=== PATIENT | female | born 1990 | race American Indian/Alaskan Native ===

== ENCOUNTER 2018-10-16 04:16 | Emergency (ER) | payer MEDICAID ==
[2018-10-16] MEDS ORDERED: TYLENOL ONE (04:49)
[2018-10-16] MEDS ORDERED: TYLENOL PO ONE (05:04)
--- NOTE | 2018-10-16 05:06 | Emergency Department Report ---
Chief Complaint: Abdominal Pain Stated Complaint: ABD PAIN - HPI History of Present Illness: [id number] IN FEB LMP 08/09 EDC 05/16 CO ABD CRAMPING NO DC NO BLEEDING MSE COMPLETED - Exam Vital Signs: Vital Signs 10/16/18 10/16/18 04:20 04:46 Temperature 98.0 F 98 F Pulse Rate 82 80 Respiratory 18 18 Rate Blood Pressure 105/52 105/52 O2 Sat by Pulse 99 100 Oximetry MSE screening note: Focused history and physical exam performed. Due to findings the following was ordered: ED Disposition for MSE Condition: Stable Instructions: Abdominal Pain (ED)
[2018-10-16 05:10] LABS: Basophils % (Auto) 0.6 % (0.0-1.8); Eosinophils # (Auto) 0.1 K/mm3 (0.0-0.4); Eosinophils % (Auto) 1.3 % (0.0-4.3); Hematocrit 36.7 % (30.3-42.9); Lymphocytes # (Auto) 1.4 K/mm3 (1.2-5.4); Lymphocytes % (Auto) 25.3 % (13.4-35.0); Mean Corpuscular HGB Conc 33 % (30-34); Mean Corpuscular Volume 91 fl (79-97); Monocytes # (Auto) 0.7 K/mm3 (0.0-0.8); Monocytes % (Auto) 11.8 % (0.0-7.3); Platelet Count 223 K/mm3 (140-440); Red Blood Count 4.02 M/mm3 (3.65-5.03); Red Cell Distribution Width 12.7 % (13.2-15.2)
[2018-10-16 05:18] LABS: Bilirubin,Urine NEG (Negative); Blood,Urine NEG (Negative); Color,Urine Yellow (Yellow); Mucus,Urine 1+ /HPF; Protein,Urine <15 mg/dL mg/dL (Negative); Urobilinogen,Urine < 2.0 mg/dL (<2.0)
[2018-10-16 05:38] LABS: BUN/Creatinine Ratio 18; Blood Urea Nitrogen 9 mg/dL (7-17); Calcium 9.2 mg/dL (8.4-10.2); Hemolysis Index 6
--- NOTE | 2018-10-16 06:46 | Ultrasound Report ---
PROCEDURE: US OB <= 14 WEEKS FETUS TECHNIQUE: Transabdominal imaging was obtained of the pelvis. HISTORY: abdominal pain COMPARISONS: None FINDINGS: The uterus is anteverted measuring 9.5 x 4.8 x 6.4 cm. Within the uterus is a well formed gestational sac which contains a yolk sac and pole. The crown-rump length is 10.4 mm corresponding to a 7 week 2 day IUP. The heart rate is 127 BPM. There is no evidence of subchorionic hemorrhage. The re is minimal free fluid cul-de-sac. The right ovary is normal in size contour and echotexture measuring 3.2 x 2.1 x 2.2 cm. Left ovary measures 5.5 x 1.6 x 2.8 cm. Within the left ovary is an anechoic cyst which measures 2.9 cm in diameter. IMPRESSION: Single viable IUP, 7 weeks 2 days. The heart rate is 127 BPM. 2.9 cm anechoic cyst left ovary. Minimal free fluid in the cul-de-sac.. This document is electronically signed by Palomo Hong MD., October 16 2018 06:44:20 AM ET
--- NOTE | 2018-10-16 06:48 | Ultrasound Report ---
PROCEDURE: US OB TRANSVAGINAL TECHNIQUE: Transvaginal imaging was obtained of the pelvis. HISTORY: abdominal pain COMPARISONS: None FINDINGS: The uterus is anteverted measuring 9.5 x 4.8 x 6.4 cm. Within the uterus is a well formed gestational sac which contains a pole and yolk sac. The crown-rump length is 10.4 mm. This corresponds to a 7 week 2 day IUP. The heart rate is 127 BPM. There is no evidence of subchorionic hemorrhage. There is minimal free fluid in the cul-de-sac. The right ovary is normal in size contour and echotexture measuring 3.2 x 2.1 x 2.2 cm. The left ovary measures 5.5 x 1.6 x 2.8 cm. Within the left ovary is an anechoic cyst measuring 2.9 c m in dimension. IMPRESSION: Single viable IUP, 7 weeks 2 days. The heart rate is 127 BPM.. 2.9 cm anechoic left ovarian cyst. Minimal free fluid in the cul-de-sac. This document is electronically signed by Palomo Hong MD., October 16 2018 06:46:23 AM ET
--- NOTE | 2018-10-16 07:43 | Emergency Department Report ---
ED Female HPI - General Chief complaint: Abdominal Pain Stated complaint: ABD PAIN Time Seen by Provider: 10/16/18 07:30 Source: patient Mode of arrival: Ambulatory Limitations: No Limitations - History of Present Illness Initial comments: This is a 28-year-old 012 presents to ED approximately 7 weeks gestation complaining of lower pelvic cramping intermittently for the past 2 weeks. Patient follows up with [facility]. Patient states that she takes her vitamins since her last menstrual period was 08/09/2018. Patient denies vaginal bleeding, vaginal discharge, MD Complaint: pelvic pain -: week(s) (2) Location: suprapubic Radiation: non-radiating Severity: mild Severity scale (0 -10): 4 Quality: cramping Consistency: intermittent Are you Now?: Yes Associated Symptoms: denies: vaginal discharge, vaginal bleeding - Related Data Sexually active: Yes : 4 Para: 2 A: 1 Allergies Allergy/AdvReac Type Severity Reaction Status Date / Time No Known Allergies Allergy Verified 10/16/18 04:50 ED Review of Systems ROS: Stated complaint: ABD PAIN Other details as noted in HPI Comment: All other systems reviewed and negative ED Past Medical Hx - Past Medical History Previous Medical History?: No - Surgical History Past Surgical History?: No - Social History Smoking Status: Never Smoker Substance Use Type: None ED Physical Exam - General Limitations: No Limitations General appearance: alert, in no apparent distress - Head Head exam: Present: atraumatic, normocephalic - Eye Eye exam: Present: normal appearance - ENT ENT exam: Present: mucous membranes moist - Neck Neck exam: Present: normal inspection - Respiratory Respiratory exam: Present: normal lung sounds bilaterally. Absent: respiratory distress - Cardiovascular Cardiovascular Exam: Present: regular rate, normal rhythm. Absent: systolic murmur, diastolic murmur, rubs, gallop - GI/Abdominal GI/Abdominal exam: Present: soft, normal bowel sounds. Absent: distended, tenderness, guarding, rebound, mass - Extremities Exam Extremities exam: Present: normal inspection, full ROM - Back Exam Back exam: Present: normal inspection, full ROM. Absent: tenderness, CVA tenderness (R), CVA tenderness (L) - Neurological Exam Neurological exam: Present: alert, oriented X3 - Psychiatric Psychiatric exam: Present: normal affect, normal mood - Skin Skin exam: Present: warm, dry, intact, normal color. Absent: rash ED Course Vital Signs 10/16/18 10/16/18 04:20 04:46 Temperature 98.0 F 98 F Pulse Rate 82 80 Respiratory 18 18 Rate Blood Pressure 105/52 105/52 O2 Sat by Pulse 99 100 Oximetry ED Medical Decision Making - Lab Data Result diagrams: 10/16/18 04:57 10/16/18 05:12 - Radiology Data Radiology results: report reviewed, image reviewed PROCEDURE: US OB TRANSVAGINAL TECHNIQUE: Transvaginal imaging was obtained of the pelvis. HISTORY: abdominal pain COMPARISONS: None FINDINGS: The uterus is anteverted measuring 9.5 x 4.8 x 6.4 cm. Within the uterus is a well formed gestational sac which contains a pole and yolk sac. The crown-rump length is 10.4 mm. This corresponds to a 7 week 2 day IUP. The heart rate is 127 BPM. There is no evidence of subchorionic hemorrhage. There is minimal free fluid in the cul-de-sac. The right ovary is normal in size contour and echotexture measuring 3.2 x 2.1 x 2.2 cm. The left ovary measures 5.5 x 1.6 x 2.8 cm. Within the left ovary is an anechoic cyst measuring 2.9 cm in dimension. IMPRESSION: Single viable IUP, 7 weeks 2 days. The heart rate is 127 BPM.. 2.9 cm anechoic left ovarian cyst. Minimal free fluid in the cul-de-sac. This document is electronically signed by Palomo Hong MD., October 16 2018 06:46:23 AM ET Transcribed By: RB Dictated By: PALOMO HONG MD Electronically Authenticated By: PALOMO HONG MD Signed Date/Time: 10/16/18 0648 - Medical Decision Making 28-year-old female presents with pelvic cramping during . All labs are within normal limits, Abdominal ultrasound shows single IUP several weeks gestation without heart rate of 1 27 bpm. Discussed this findings with the patient. Discussed patient to make sure she is increasing her hydration, take Tylenol for cramping as needed. Discussed follow-up with [facility]. The patient declines any vaginal bleeding. Past sensory normal and she is in no acute distress. Critical care attestation.: If time is entered above; I have spent that time in minutes in the direct care of this critically ill patient, excluding procedure time. ED Disposition Clinical Impression: Pelvic pain during Disposition: DC-01 TO HOME OR SELFCARE Is pt being admited?: No Does the pt Need Aspirin: No Condition: Stable Instructions: Abdominal Pain (ED), (ED), Abdominal Pain in (ED) Additional Instructions: Make sure to follow up with the [facility] as discussed. Take all your medications as you've been prescribed. If you have any worsening symptoms or develop new symptoms please return to ED immediately. Referrals: MARIANELA GUPTA MD [Primary Care Provider] - 3-5 Days Forms: Work/School Release Form(ED) Time of Disposition: 08:19
[2018-10-17 18:17] VITALS: BP 105/52
== END 2018-10-16 08:33 | disposition home or self-care (01) ==
LOC: ED 04:16
DX: O26.891 Other specified pregnancy related conditions, first trimester (principal); R10.2 Pelvic and perineal pain; Z3A.01 Less than 8 weeks gestation of pregnancy
CPT/HCPCS: 36415; 76801; 76817; 80048; 81001; 84702; 85025; 86900; 86901; 99284